=== PATIENT | male | born 1995 | race African-American/Black ===

== ENCOUNTER 2016-11-12 12:11 | Emergency (ER) | payer OTHER ==
[2016-11-12 12:26] VITALS: BP 126/65; PULSE 63; RESP 18; TEMP 98.3
[2016-11-12] MEDS ORDERED: PROPARACAINE 0.5% OPHTH DROPS 15 ML BTL LEFT EYE STA (12:41)
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
== END 2016-11-12 13:10 | disposition home or self-care (01) ==
LOC: EC 12:11
DX: S01.112A Laceration without foreign body of left eyelid and periocular area, initial encounter (principal); F32.9 Major depressive disorder, single episode, unspecified; F41.9 Anxiety disorder, unspecified; Z79.899 Other long term (current) drug therapy; W51.XXXA Accidental striking against or bumped into by another person, initial encounter; Y93.84 Activity, sleeping
CPT/HCPCS: 99283

== ENCOUNTER 2017-03-13 13:46 | Emergency (ER) | payer OTHER ==
[2017-03-13] MEDS ORDERED: ONDANSETRON 4 MG ODT STARTER PACK 2 TAB BTL PO STA (14:25)
[2017-03-13] MEDS ORDERED: BISMUTH SUBSALICYLATE 4,192 MG/240 ML BOTTLE PO PRN (14:32)
--- NOTE | 2017-03-13 14:43 | ED ---
General Adult HPI - General Chief complaint: Abdominal Pain Stated complaint: Abd Pain Time Seen by Provider: 03/13/17 14:15 Source: patient, RN notes reviewed Mode of arrival: ambulatory Limitations: no limitations - History of Present Illness Initial comments: Chief complaint and history of present illness is a 21-year-old male here with a complaint of loose stool for several days. Nausea but no vomiting. No pain. No blood in the diarrhea. - Related Data Home Medications Medication Instructions Recorded Confirmed ALPRAZolam [Xanax] 0.5 mg PO TID 09/14/15 09/14/15 Allergies Allergy/AdvReac Type Severity Reaction Status Date / Time No Known Allergies Allergy Verified 03/13/17 13:55 Review of Systems ROS Statement: Those systems with pertinent positive or pertinent negative responses have been documented in the HPI. review of systems. No headache or visual acuity changes no chest pain or shortness of breath is on complaint is loose stool for several days. Less so today. Nausea no vomiting. No blood in the stool. No recent antibiotics. Minimal abdominal cramping. Patient did miss a day of work today and needs a work excuse. All systems are reviewed. Past medical problems none. Surgeries none. Family history no significant medical problems. Patient denies any ALLERGIES. He smokes marijuana on occasion. Drink alcohol socially. Occupation Works in a [employer] factory ROS Other: All systems not noted in ROS Statement are negative. Past Medical History Past Medical History: No Reported History History of Any Multi-Drug Resistant Organisms: None Reported Past Surgical History: No Surgical Hx Reported Past Psychological History: Anxiety, Depression Smoking Status: Never smoker Past Alcohol Use History: None Reported Past Drug Use History: None Reported General Exam - General Exam Comments Initial Comments: General: The patient is awake and alert, in no distress, and does not appear acutely ill. here with a chief complaint of diarrhea for several days less so today than yesterday nausea no vomiting. Vital signs shows temperature 98.5 pulse 62 respiratory rate 16 pulse ox on percent room air blood pressure 121/59. Eye: Pupils are equal, round and reactive to light, extra-ocular movements are intact ; there is normal conjunctiva bilaterally. No signs of icterus. Ears, nose, mouth and throat: There are moist mucous membranes and no oral lesions. Neck: The neck is supple, there is no tenderness , no anterior cervical lymphadenopathy, thyroid not enlarged. Cardiovascular: There is a regular rate and rhythm. No murmur, rub or gallop is appreciated. Respiratory: Lungs are clear to auscultation, respirations are non-labored, breath sounds are equal. No wheezes, stridor, rales, or rhonchi. Gastrointestinal: Soft, non-distended, non-tender abdomen without masses or organomegaly noted. There is no rebound or guarding present. No CVA tenderness. active bowel sounds. One loose stool today. Back: There is no tenderness to palpation in the midline. There is no obvious deformity. Musculoskeletal: Normal ROM, no tenderness, There is no pedal edema. There is no calf tenderness or swelling. Sensation intact. Pulses equal bilaterally 2+. no complaint of a numbness tingling or balance problems. Skin: denies rashes. Limitations: no limitations Course Vital Signs 03/13/17 13:53 Temperature 98.5 F Pulse Rate 62 Respiratory 16 Rate Blood Pressure 121/59 O2 Sat by Pulse 100 Oximetry Medical Decision Making - Medical Decision Making we discussed diarrhea etc. the patient has enteritis this time. No blood. He' ll be sent home with the advice to take Pepto-Bismol several tablespoons throughout the day. He'll take Zofran for nausea. Advance his fluids. If diarrhea persists suggested that he take [id number] Imodium. Advised follow-up with his family doctor for does not have one he is return emergency room as needed. Disposition Clinical Impression: Diarrhea Disposition: HOME SELF-CARE Condition: Fair Instructions: Acute Diarrhea (ED), Acute Nausea and Vomiting (ED) Additional Instructions: Increase fluids, use [id number] Pepto-Bismol 2 tablespoons every 6 hours. Follow-up with your family doctor if you don't have a family doctor then follow-up with Dr. Haq. Referrals: None,Stated [Primary Care Provider] - 1-2 days Brittany Haq MD [STAFF PHYSICIAN] - 1-2 days Time of Disposition: 14:42
[2017-03-13 23:29] VITALS: BP 124/68; PULSE 76; RESP 18; TEMP 97.8
== END 2017-03-13 14:56 | disposition home or self-care (01) ==
LOC: EC 13:46
DX: R19.7 Diarrhea, unspecified (principal); R11.0 Nausea; F41.9 Anxiety disorder, unspecified; Z79.899 Other long term (current) drug therapy
CPT/HCPCS: 99283; S0119

== ENCOUNTER → 2018-01-09 | Outpatient (CLI) | payer OTHER ==
--- NOTE | 2018-01-09 12:04 | XR ---
EXAMINATION TYPE: XR knee complete LT DATE OF EXAM: 01/09/2018 COMPARISON: None HISTORY: Left leg hyperextension, fall TECHNIQUE: Three-view left knee FINDINGS: Joint spaces are preserved. No acute fractures are evident. No joint effusion is evident. Follow-up exam can be performed 7-10 days from acute trauma for continued pain. MRI could be utilized if soft tissue evaluation would be of benefit. IMPRESSION: 1. Normal three-view left knee
== END ==
LOC: RADXRMAIN 11:29
PROVIDERS: ATTEND Emergency Medicine
DX: S83.92XA Sprain of unspecified site of left knee, initial encounter (principal)

== ENCOUNTER 2018-10-24 05:40 | Emergency (ER) | payer OTHER ==
[2018-10-24 05:51] VITALS: BP 130/72; PULSE 73; RESP 20; TEMP 98.7
--- NOTE | 2018-10-24 06:29 | ED ---
General Adult HPI - General Chief complaint: Back Pain/Injury Stated complaint: [facility]-lower back and elbow pain Time Seen by Provider: 10/24/18 06:13 Source: patient, family, RN notes reviewed Mode of arrival: ambulatory Limitations: no limitations - History of Present Illness Initial comments: Patient 23-year-old male presented to the emergency room today with a chief complaint of lower back pain from an injury. Patient was at work using a pallet [place] when he slipped on the ground falling backwards. Patient doesn't pain to the right side of the lower back. Patient denies bowel or bladder incontinence retention. Denies any saddle or seizure. Patient is between his elbows. He states they feel fine to him is not worried about any broken bones. States sore to move. Patient denies any head injury loss consciousness. Patient doesn't that the pain in his lower back is worse with movements of bending, turning, twisting. Patient denies any recent fever, chills, shortness of breath, chest pain, headaches or visual changes, or any other complaints. - Related Data Home Medications Medication Instructions Recorded Confirmed ALPRAZolam [Xanax] 0.5 mg PO TID 09/14/15 09/14/15 Previous Rx's Medication Instructions Recorded Cyclobenzaprine [Flexeril] 10 mg PO TID #20 tab 10/24/18 Ibuprofen [Motrin] 600 mg PO Q6HR PRN #40 day 10/24/18 Allergies Allergy/AdvReac Type Severity Reaction Status Date / Time No Known Allergies Allergy Verified 10/24/18 05:51 Review of Systems ROS Statement: Those systems with pertinent positive or pertinent negative responses have been documented in the HPI. ROS Other: All systems not noted in ROS Statement are negative. Past Medical History Past Medical History: No Reported History History of Any Multi-Drug Resistant Organisms: None Reported Past Surgical History: No Surgical Hx Reported Past Psychological History: Anxiety, Depression Smoking Status: Never smoker Past Alcohol Use History: None Reported Past Drug Use History: None Reported General Exam - General Exam Comments Initial Comments: General: The patient is awake and alert, in no distress, and does not appear acutely ill. Eye: There is normal conjunctiva bilaterally. No signs of icterus. Ears, nose, mouth and throat: There are moist mucous membranes and no oral lesions. Neck: The neck is supple Musculoskeletal: Normal appearance of cervical thoracic lumbar spine with no step-off or deformity. Patient has no tenderness midline over the lumbar processes. Patient does have paravertebral tenderness lower lumbar on the right side. Patient's pain reproduced with movements of bending, turning, twisting. Neurological: A&O x 3. CN II-XII intact, There are no obvious motor or sensory deficits. Coordination appears grossly intact. Speech is normal. Skin: Skin is warm and dry and no rashes or lesions are noted. Psychiatric: Cooperative, appropriate mood & affect, normal judgment. Limitations: no limitations Course Vital Signs 10/24/18 05:46 Temperature 98.7 F Pulse Rate 73 Respiratory 20 Rate Blood Pressure 130/72 O2 Sat by Pulse 100 Oximetry Medical Decision Making - Medical Decision Making X-rays reviewed are unremarkable. Patient will be treated for musculoskeletal back sprain with anti-inflammatories and muscle relaxant. Patient is advised that muscle relaxant may make him drowsy. Is advised follow-up with employee health over the next few days. Advised to return to emergency room if any symptoms increase or worsen or for any other concerns. Disposition Clinical Impression: Acute low back pain Disposition: HOME SELF-CARE Condition: Good Instructions (If sedation given, give patient instructions): Acute Low Back Pain (ED) Additional Instructions: Please use medications as prescribed. Please be aware that muscle relaxant may make you drowsy. Follow-up with employee health over the next 2 days. Return to emergency room for new concerns. Prescriptions: Cyclobenzaprine [Flexeril] 10 mg PO TID #20 tab Ibuprofen [Motrin] 600 mg PO Q6HR PRN #40 day PRN Reason: Pain Is patient prescribed a controlled substance at d/c from ED?: No Referrals: None,Stated [Primary Care Provider] - 1-2 days Time of Disposition: 06:53
--- NOTE | 2018-10-24 07:20 | XR ---
EXAM: XR Lumbar Spine, 2 or 3 Views CLINICAL HISTORY: Pain TECHNIQUE: Frontal and lateral views of the lumbar spine. COMPARISON: No relevant prior studies available. FINDINGS: Vertebrae: Unremarkable. No acute fracture. Normal alignment. Disc spaces: No acute findings. No significant narrowing. Soft tissues: Unremarkable. IMPRESSION: Normal lumbar spine x-rays.
== END 2018-10-24 07:18 | disposition home or self-care (01) ==
LOC: EC 05:40
DX: S33.5XXA Sprain of ligaments of lumbar spine, initial encounter (principal); F32.9 Major depressive disorder, single episode, unspecified; F41.9 Anxiety disorder, unspecified; Z79.899 Other long term (current) drug therapy; W01.0XXA Fall on same level from slipping, tripping and stumbling without subsequent striking against object, initial encounter; Y93.89 Activity, other specified; Y92.69 Other specified industrial and construction area as the place of occurrence of the external cause; Y99.0 Civilian activity done for income or pay
CPT/HCPCS: 72100; 99283